=== PATIENT | female | born 1980 | race Caucasian/White ===

== ENCOUNTER 2020-09-18 06:13 | Observation (INO) | payer BC, MEDICAID ==
[2020-09-11 15:18] LABS: BASOPHILS # (AUTO) 0.1 X10'3 (0-0.2); BASOPHILS % (AUTO) 0.5 % (0-1); EOSINOPHILS # (AUTO) 0.2 X10'3 (0-0.9); EOSINOPHILS % (AUTO) 1.9 % (0-6); LYMPHOCYTES # (AUTO) 2.5 X10'3 (1.1-4.8); LYMPHOCYTES % (AUTO) 22.9 % (21-51); MEAN CORPUSCULAR HEMOGLOBIN 29.1 PG (27.0-31.0); MEAN CORPUSCULAR HGB CONC 33.7 g/dL (33.0-36.5); MEAN CORPUSCULAR VOLUME 86.3 FL (78-98); MEAN PLATELET VOLUME 8.7 FL (7.4-10.4); MONOCYTES # (AUTO) 0.7 X10'3 (0-0.9); MONOCYTES % (AUTO) 6.2 % (2-12); NEUTROPHILS # (AUTO) 7.4 X10'3 (1.8-7.7); NEUTROPHILS % (AUTO) 68.5 % (42-75); PRE OP HEMATOCRIT 43.5 % (35.0-45.0); PRE OP HEMOGLOBIN 14.7 g/dL (12.0-16.0); PRE OP PLATELET COUNT 301 X10'3 (140-440); RED BLOOD COUNT 5.04 X10'6 (4.20-5.60); RED CELL DISTRIBUTION WIDTH 15.8 % (11.5-14.5)
[2020-09-11 15:30] LABS: ALBUMIN 3.6 G/DL (3.4-5.0); ALBUMIN/GLOBULIN RATIO 0.8 (1.1-1.5); ALKALINE PHOSPHATASE 81 IU/L (46-116); BLOOD UREA NITROGEN 15 MG/DL (7-18); BUN/CREATININE RATIO 19.7 (6.6-38.0); CALCIUM 8.7 MG/DL (8.5-10.1); CHLORIDE 104 MMOL/L (99-107); CREATININE 0.76 MG/DL (0.40-0.90); PRE OP ALT 34 U/L (30-65); PRE OP ANION GAP 8 (8-16); PRE OP AST 17 U/L (10-37); PRE OP BILIRUB, TOTAL 0.3 MG/DL (0.0-1.0); PRE OP GLUCOSE 91 MG/DL (70-104); PRE OP POTASSIUM 4.3 MMOL/L (3.4-5.1); PRE OP SODIUM 138 MMOL/L (135-145); TOTAL CARBON DIOXIDE 25.8 MMOL/L (24-32); TOTAL PROTEIN 8.4 G/DL (6.4-8.2); eGFR 84 ML/MIN
[2020-09-11 15:37] LABS: HCG SERUM QL NEGATIVE
[~2020-09-18] VITALS: Ht 165.1 cm; Wt 159.1 kg
[2020-09-18] VITALS (23 sets, daily range): BP systolic 113–141; BP diastolic 62–87
[~2020-09-18 06:13] MED LIST: ALBU8.5H8 IH; ASPI-1071 PO; FERR240T5 PO; SERT-434 PO; albuterol 2.5 MG/3 ML nebule NEB ONE; ceFOXitin 2GM-NS 100mL ADDvant 100 ML IV ONE; famotidine 20mg tablet PO ONE; ringers solution, lacted 1,000 ML IV SCH
[2020-09-18] MEDS ORDERED: ipratropium/albuterol 3ml nebule NEB ONE (07:15)
[2020-09-18 07:35] LABS: CLARITY,URINE SLIGHTLY CLOUDY (Clear); COLOR,URINE YELLOW (Yellow); GLUCOSE, URINE NEGATIVE (Neg); KETONES,URINE NEGATIVE (Neg); LEUKOCYTE ESTERASE ,URINE NEGATIVE (Neg); NITRITES, URINE NEGATIVE (Neg); OCCULT BLOOD,URINE NEGATIVE (Neg); PROTEIN,URINE NEGATIVE (Neg); UA COLLECTION TYPE CLN CATCH MIDSTREAM; UROBILINOGEN,URINE 0.2 E.U/dL (0.2-1.0)
[2020-09-18 07:41] LABS: BACTERIA,URINE FEW /HPF (Neg); MUCUS STRANDS MODERATE /LPF (Neg); RBC,URINE 0-2 /HPF (0-2); SQUAMOUS EPITHELIAL CELL,UR MODERATE /LPF (FEW); WBC,URINE 0-4 /HPF (0-4)
[2020-09-18] MEDS ORDERED: BUPIVAcaine 0.5% inj/PF 30 ML ONE (10:29)
[2020-09-18] MEDS ORDERED: sevoflurane 250ml liquid IH ONE (11:05)
[2020-09-18] MEDS ORDERED: rocuronium 10mg/ml inj IV ONE ×2 (11:05→11:32)
[2020-09-18] MEDS ORDERED: glycopyrrolate 0.2mg/ml inj ONE (11:05)
[2020-09-18] MEDS ORDERED: neostigmine methylsulfate 1 MG/ML 10ml vial ONE (11:05)
[2020-09-18] MEDS ORDERED: midazolam 1 mg/ML 2ml injection ONE (11:12)
[2020-09-18] MEDS ORDERED: fentaNYL /PF 50mcg/ml 5ml ampule ONE (11:31)
[2020-09-18] MEDS ORDERED: propofol inj 20 ML IV ONE (11:32)
[2020-09-18] MEDS ORDERED: LIDOcaine 2% (20mg/ml) 5ml vial ONE (11:32)
[2020-09-18] MEDS ORDERED: ondansetron/PF 4mg/2ml inj ONE (11:32)
[2020-09-18] MEDS ORDERED: acetaminophen 1,000mg/100ml IV 100 ML IV ONE (11:32)
[2020-09-18] MEDS ORDERED: dexamethasone sod phosphate 4mg/ml inj. ONE (11:32)
[2020-09-18] MEDS ORDERED: ondansetron/PF 4mg/2ml inj IV PRN (11:40)
[2020-09-18] MEDS ORDERED: proCHLORperazine 10 MG/2 ml inj IV PRN (11:40)
[2020-09-18] MEDS ORDERED: ringers solution, lacted 1,000 ML IV SCH (11:40)
[2020-09-18] MEDS ORDERED: morphine 2 MG/ML inj. syringe IV PRN (11:40)
[2020-09-18] MEDS ORDERED: morphine 4 MG/ML inj SYRINge IV PRN (11:40)
[2020-09-18] MEDS ORDERED: meperidine/PF 25mg/ml syringe IV PRN ×2 (11:40)
[2020-09-18] MEDS ORDERED: BUPIVAcaine 0.5% inj/PF 30 ml vial IJ ONE (11:59)
[2020-09-18] MEDS ORDERED: sugammadex 200mg/2ml injection IV ONE ×2 (12:57)
--- NOTE | 2020-09-18 13:05 | NUR ---
PT ARRIVED FROM OR IN BED, DR. CUENCA ANESTHESIA REPORT GIVEN, VSS, PT STILL WAKING UP, HAS HX OF SLEEP APNEA-USES CPAP AT HOME, O2 ST 95% ON 10L MASK, PIV 20G TO LUE-LR RUNNING, DERMABOND AND VALARIE TO 3 OUT OF 4 LAP SITES-CDI, DENIES PAIN, SCDS ON.
[2020-09-18] MEDS ORDERED: albuterol 60 PUFF/8GM Inhaler IH ONE (13:14)
[2020-09-18] MEDS: meperidine/PF 25mg/ml syringe IV PRN ×2 (13:56→14:19)
--- NOTE | 2020-09-18 15:05 | NUR ---
PT AWAKE, A/OX4, PAIN /, PIV 20G TO LEFT HAND-LR AT 100ML/HR, SCDS IN PLACE, LAP SITES X4 WITH VALARIE AND DERMABOND - CDI, TOLERATING ICE CHIPS, REPORT CALLED TO MILI RN-ALL QUESTIONS ANSWERED, TAKEN WITH ALL BELONGINGS AND CPAP TO ROOM 355A, EDUCATED ABOUT WEARING CPAP FOR NEXT 24HRS WHEN NOT UP AND MOVING, HOOKED UP TO MONITORS, CALL LIGHT IN REACH, BED LOW AND LOCKED, PRIMARY RN AWARE OF PT ARRIVAL.
[2020-09-18] MEDS ORDERED: FERR324T23 PO (15:10)
[2020-09-18] MEDS ORDERED: albuterol 2.5 MG/3 ML nebule NEB PRN (15:15)
[2020-09-18] MEDS: HYDROcodone/acetaminophen 10/325mg tab PO PRN (18:05)
--- NOTE | 2020-09-18 19:01 | NUR ---
Patient in room [facility]. I have received report from Emory ZABALA and had the opportunity to ask questions and assume patient care.
[2020-09-18] MEDS: normal saline 1000ml 1,000 ML IV SCH (23:44)
[2020-09-19 00:03] VITALS: BP 134/72
[2020-09-19] MEDS: normal saline 1000ml 1,000 ML IV SCH ×2 (00:55→10:55)
[2020-09-19] MEDS: HYDROcodone/acetaminophen 10/325mg tab PO PRN ×2 (05:51→12:44)
--- NOTE | 2020-09-19 06:47 | NUR ---
Problems reprioritized. Patient report given, questions answered & plan of care reviewed with Diane ZABALA.
[2020-09-19] MEDS ORDERED: aspirin 81mg tablet.DR PO SCH (08:00)
[2020-09-19] MEDS ORDERED: sertraline 50mg tablet PO SCH (08:00)
[2020-09-19 08:36] VITALS: BP 129/64
[2020-09-19 11:00] VITALS: BP 124/67
== END 2020-09-19 14:05 | disposition home or self-care (01) ==
LOC: PAS 06:13 → SUR 3N 14:54
PROVIDERS: ADMIT Surgery; ATTEND Surgery
DX: K80.20 Calculus of gallbladder without cholecystitis without obstruction (principal); J45.909 Unspecified asthma, uncomplicated; Z86.711 Personal history of pulmonary embolism; Z79.82 Long term (current) use of aspirin; Z79.899 Other long term (current) drug therapy; Z90.89 Acquired absence of other organs
CPT/HCPCS: 36415; 47562; 71046; 80053; 81001; 82948; 84703; 85025; 94640; 94760; 96361; 96374; C9399; G0378; J0131; J0694; J1100; J2001; J2175; J2250; J2405; J2704; J2710; J3010; J7030; J7120; A4215; A4618; A7000; J3490